=== PATIENT | female | born 1940 | race Caucasian/White ===

== ENCOUNTER 2024-02-20 13:49 | Emergency (ER) | payer MEDICARE ==
[~2024-02-20] VITALS: Ht 149.9 cm; Wt 68.2 kg
[~2024-02-20 13:49] MED LIST: 00186-0372-20 IH; AMARYL4 MG PO; ASPIRIN 81M81 MG/TA2 PO; AVAPRO150 MG PO; BIAXIN 500MG T500 MG PO; COQ10150 MG PO; COZAAR 50MG50 MG/TAB PO; DARVOCET N 101 UDTAB PO; DOXYCYCLINE HY100 MG PO; ESTRADIOL1 MG PO; FLAGYL500 MG PO; FLEXERIL5 MG PO; IMIPRAMINE25 MG PO; METFORMIN500 MG PO; MIRALAX238G PO; NITROSTAT0.4 MG/TAB SL; OSTEO-BI-FLEX 21 TAB PO; PARAFON FORTE500 MG PO; PLAVIX 75MG TAB75 MG PO; PREVACID 30MG30 M1 PO; PROAIR HFA0.09 MG/AC IH; PROTONIX 40MG T40 MG PO; QVAR0.08 MG/AC IH; SPIRIVA18 MCG IH; TEGRETOL 1100 MG/TAB PO; TOFRANIL25 MG PO; TOPROL XL100 MG PO; TRILAFON2 MG PO; TYLENOL 325MG325 MG PO; TYLENOL 500MG500 MG PO; VITAMIN D1000 IU PO
[2024-02-20 14:09] VITALS: TEMP 98.1
[2024-02-20 17:57] LABS: BASO % 0.4 % (0.0-2.0); EOS # 0.2 K/mm3 (0.0-0.7); EOS % 2.1 % (0.0-4.0); GRAN # 3.5 K/mm3 (1.4-6.5); GRAN % 37.3 % (42.2-75.2); HEMATOCRIT 40.1 % (37.0-47.0); HEMOGLOBIN 12.7 g/dl (12.5-16.0); LYMPH # 4.7 K/mm3 (1.2-3.4); LYMPH % 50.6 % (20.0-51.0); MEAN CELL VOLUME 91 fl (80.0-100.0); MEAN CORPUSCULAR HEMOGLOBIN 29 pg (27-31); MEAN CORPUSCULAR HGB CONC 32 g/dl (33.0-37.0); MEAN PLATELET VOLUME 9.1 fl (7.4-10.4); MONO # 0.9 K/mm3 (0.1-0.6); MONO % 9.4 % (1.7-9.3); PLATELET COUNT 280 K/mm3 (130-400); RED BLOOD COUNT 4.41 M/mm3 (4.10-5.30); REDCELL DISTRIBUTION WIDTH-CV 13.8 % (11.5-14.5)
[2024-02-20 18:15] LABS: ALBUMIN 3.3 g/dL (3.4-4.8); BILIRUBIN,TOTAL 0.3 mg/dL (0.2-1.2); C-REACTIVE PROTEIN 0.51 mg/dL (0.00-0.50); CALCIUM 9.3 mg/dL (8.4-10.2); CREATININE, serum 0.84 mg/dL (0.57-1.11); TOTAL PROTEIN 6.4 g/dl (6.2-8.1)
[2024-02-20] MEDS ORDERED: Iohexol 300 - 100 ML VIAL IV ONE (19:29)
[2024-02-20] MEDS ORDERED: NS 50 ML IV ONE (19:29)
[2024-02-20] MEDS ORDERED: carBAMazepine 100 MG TAB PO ONE (20:00)
[2024-02-20] MEDS ORDERED: TEGRETOL 1100 MG/TAB PO (20:04)
[2024-02-20 20:28] VITALS: BP 176/72; PULSE 70
== END 2024-02-20 20:35 | disposition home or self-care (01) ==
LOC: COL.ER 13:49
PROVIDERS: Family Medicine
DX: G50.0 Trigeminal neuralgia (principal)
CPT/HCPCS: Q9967